=== PATIENT | female | born 1995 | race American Indian/Alaskan Native ===

== ENCOUNTER 2017-04-19 20:42 | Emergency (ER) | payer OTHER ==
[2017-04-19 21:40] VITALS: BP 139/93
== END 2017-04-19 21:40 | disposition left against medical advice (07) ==
LOC: ED 20:42
DX: G43.909 Migraine, unspecified, not intractable, without status migrainosus (principal); Z53.21 Procedure and treatment not carried out due to patient leaving prior to being seen by health care provider